=== PATIENT | female | born 1960 | race Caucasian/White ===

== ENCOUNTER 2016-04-06 09:34 | Emergency (ER) | payer BC ==
[2016-04-06 09:45] VITALS: TEMP 98.6; BMI 25.2
--- NOTE | 2016-04-06 10:19 | EDPRACDOC ---
- General Information Chief Complaint: Allergic Reaction Stated Complaint: ALLERGIC REACTION Time Seen by Provider: 04/06/16 09:50 Information Source: Patient Mode Of Arrival: Car Home Medications: Home Medications Paroxetine [Paxil] 20 mg PO QHS 09/16/12 Ibuprofen Tablet [Motrin] 800 mg PO Q6-8H PRN 04/06/16 Allergies/Adverse Reactions: Allergies Allergy/AdvReac Type Severity Reaction Status Date / Time Sulfa (Sulfonamide Allergy Nausea only Verified 09/16/12 06:35 Antibiotics) [Sulfa(Sulfonamide Antibiotics)] - History of Present Illness Exposure occurred: 0840 ED Past Medical History - Patient Medical History Psychological History: Reports: Anxiety (panic attacks). Denies: Depression Systemic History: Denies: Cancer Surgical History: Reports: Appendectomy, Tonsillectomy/Adnoidectomy - Social Medical History Smoking Status: Never smoker - Physical Exam Last recorded Vital Signs: Last Vital Signs Temp 98.6 F 04/06/16 09:42 Pulse 115 04/06/16 09:42 Resp 20 04/06/16 09:42 BP 161/79 04/06/16 09:42 Pulse Ox 96 04/06/16 09:42 Oxygen Pulse Oxygen Saturation 96 O2 Device Room Air Oxygen Flow Rate Fraction of Inspired Oxygen ( FIO2) - Departure Referrals: Olena Butt MD [Primary Care Provider] - One Week Prescriptions: No Action Paroxetine [Paxil] 20 mg PO QHS Ibuprofen Tablet [Motrin] 800 mg PO Q6-8H PRN PRN Reason: Pain
--- NOTE | 2016-04-06 10:19 | EDPRACDOC ---
- General Information Chief Complaint: Allergic Reaction Stated Complaint: ALLERGIC REACTION Time Seen by Provider: 04/06/16 09:50 Information Source: Patient Mode Of Arrival: Car Home Medications: Home Medications Paroxetine [Paxil] 20 mg PO QHS 09/16/12 Ibuprofen Tablet [Motrin] 800 mg PO Q6-8H PRN 04/06/16 Prednisone [Deltasone, Orasone] 40 mg PO DAILY 5 Days 04/06/16 Allergies/Adverse Reactions: Allergies Allergy/AdvReac Type Severity Reaction Status Date / Time Sulfa (Sulfonamide Allergy Nausea only Verified 09/16/12 06:35 Antibiotics) [Sulfa(Sulfonamide Antibiotics)] - History of Present Illness HPI: C/o swelling to left side face x 40 mins. Denies pain, fever, rash, sob, trouble swallowing, eating or drinking, vision change, cough, sore throat, trouble moving jaw. Med hx = panic d/o. Surgcial hx = c section, appy. Exposure occurred: 0840 Exposed to: Unknown Symptoms started: Minutes Symptoms Developed: Reports: Facial swelling. Denies: Difficulty swallowing, Generalized erythema, Pruritus, Rash, Shortness of breath, Throat swelling, Wheeze, Tongue Swelling Reaction Location: Reports: Face (left) Relevant History of: Denies: O, Asthma, Prior similar episodes, Urticaria Associated Signs and Symptoms: Denies: None, Abdominal Pain, Chest Pain, Faintness, Generalized Swelling, Other ED Past Medical History - History Reviewed Yes Nurses notes reviewed and agree except as marked - Patient Medical History Psychological History: Reports: Anxiety (panic attacks). Denies: Depression Systemic History: Denies: Cancer Surgical History: Reports: Appendectomy, Tonsillectomy/Adnoidectomy - Social Medical History Smoking Status: Never smoker EDM Review of Systems - Review of Systems ROS Negative Except as Marked: Yes All systems reviewed and were negative except as marked ROS Comments: Facial swelling left side - Physical Exam Constitutional: No apparent distress, Alert Oriented to: Time, Person, Place Last recorded Vital Signs: Last Vital Signs Temp 98.6 F 04/06/16 09:42 Pulse 115 04/06/16 09:42 Resp 20 04/06/16 09:42 BP 161/79 04/06/16 09:42 Pulse Ox 96 04/06/16 09:42 Oxygen Pulse Oxygen Saturation 96 O2 Device Room Air Oxygen Flow Rate Fraction of Inspired Oxygen ( FIO2) - HEENT Head: Normal Eye Exam: negative: Conjunctival Injection, Scleral Icterus Oropharynx: Normal Tympanic Membrane: Normal ENT EAC: Normal TMJ: Normal Nose: No Symptoms Reported Neck: Normal - Respiratory/Cardiovascular Respiratory: Normal - CTA Cardiovascular: Normal - GI Auscultation: Normal Palpation: Normal Tenderness: Non tender - Musculoskeletal Back: Normal Extremities: Normal - Integumentary Skin: Normal - Neurologic Mood Description: Normal Thought: Coherent Perception: Normal ED Allergic Reaction Exam - HEENT Eye Exam: Normal Tongue: Normal Palate: Normal Buccal Mucosa: Normal Oropharynx: Normal Neck: Normal - Integumentary Skin: Normal Skin Lesion: Macular Rash Color: Brown Lymphatics: Normal - Additional Information Additional Information: Swelling self-resolved while pt sitting in ED room. Pt wants to go home. Decision Time to Discharge: 11:05 - Departure Disposition: Home Condition: Stable Final Diagnosis: Left facial swelling Instructions: Edema Education/Counseling Given To: Patient Education/Counseling Given Regarding: Diagnosis, Treatment, Prognosis, Follow Up Referrals: Olena Butt MD [Primary Care Provider] - One Week Prescriptions: New Prednisone [Deltasone, Orasone] 40 mg PO DAILY 5 Days No Action Paroxetine [Paxil] 20 mg PO QHS Ibuprofen Tablet [Motrin] 800 mg PO Q6-8H PRN PRN Reason: Pain Additional Instructions: Follow up with primary care. Return to ED for any new or worsening symptoms.
[2016-04-06 11:22] VITALS: BP 143/74; PULSE 78
== END 2016-04-06 11:22 | disposition home or self-care (01) ==
LOC: ED 09:34
DX: R22.0 Localized swelling, mass and lump, head (principal)
CPT/HCPCS: 99282